=== PATIENT | female | born 1955 | race Caucasian/White ===

== ENCOUNTER 2020-06-04 18:35 | Emergency (ER) | payer OTHER, SELFPAY ==
[~2020-06-04] VITALS: Ht 160 cm; Wt 83.9 kg
[2020-06-04 18:35] VITALS: BP_SYST 165
[2020-06-04] MEDS ORDERED: methylPREDNISolone SOD SUCC/PF 62.5 MG/ML VIAL IVP ONE (19:00)
[2020-06-04] MEDS ORDERED: MAGNESIUM SULFATE 50 ML IV ONE (19:00)
[2020-06-04] MEDS ORDERED: NS 500 ML IV ONE (19:00)
[2020-06-04] MEDS ORDERED: ACETAMINOPHEN 500 MG TABLET PO ONE (19:45)
[2020-06-04] MEDS ORDERED: IPRATROPIUM/ALBUTEROL SULFATE 3 ML AMPUL.NEB (DUONEB) INH ONE (20:45)
[2020-06-04] MEDS ORDERED: MED4 PO (21:01)
[2020-06-04] MEDS ORDERED: AZIT250T PO (21:03)
[2020-06-04 21:50] VITALS: BP_SYST 132
== END 2020-06-04 21:50 | disposition home or self-care (01) ==
LOC: SED 18:35
DX: J44.1 Chronic obstructive pulmonary disease with (acute) exacerbation (principal); I10 Essential (primary) hypertension; Z86.73 Personal history of transient ischemic attack (TIA), and cerebral infarction without residual deficits
CPT/HCPCS: 71045; 94640; 96365; 96366; 96375; 99284; J7030

== ENCOUNTER 2021-11-22 06:51 | Emergency (ER) | payer OTHER ==
[~2021-11-22] VITALS: Ht 160 cm; Wt 68.0 kg
[~2021-11-22 06:51] MED LIST: MED4 PO; ZIT250 PO
[2021-11-22 06:52] VITALS: BP_SYST 121
--- NOTE | 2021-11-22 06:52 | NUR ---
Placed in room 1 . Placed on monitoring engineer, blood pressure machine and pulse oximeter. To gown for exam. Side rails up. Report given to VON CORDOBA(REG).
--- NOTE | 2021-11-22 06:53 | NUR ---
ER at bedside examining patient.
[2021-11-22] MEDS ORDERED: MAGNESIUM SULFATE 50 ML IV ONE ×2 (06:58→07:00)
[2021-11-22] MEDS ORDERED: IPRATROPIUM BROM 0.5 MG/2.5 ML VIAL.NEB (ATROVENT) INH ONE (07:00)
[2021-11-22] MEDS ORDERED: ALBUTEROL SULFATE 0.083% 2.5 MG/3 ML VIAL.NEB INH ONE (07:00)
[2021-11-22] MEDS ORDERED: methylPREDNISolone SOD SUCC 500 MG/VIAL (Solu-MEDROL) IV ONE (07:00)
[2021-11-22] MEDS ORDERED: methylPREDNISolone SOD SUCC/PF 62.5 MG/ML VIAL ONE (07:06)
[2021-11-22 07:12] LABS: BASOPHILS # (AUTO) 0.1 K/uL (0.0-0.2); BASOPHILS % (AUTO) 0.5 % (0.0-2.0); EOSINOPHILS # (AUTO) 1.1 K/uL (0.0-0.4); EOSINOPHILS % (AUTO) 8.8 % (0.0-4.0); HEMATOCRIT 44.1 % (36-48); HEMOGLOBIN 14.8 g/dL (12.0-16.0); LYMPHOCYTES # (AUTO) 4.9 K/uL (1.0-5.5); LYMPHOCYTES % (AUTO) 38.5 % (20.5-51.5); MEAN CORPUSCULAR HEMOGLOBIN 30 pg (27-31); MEAN CORPUSCULAR HGB CONC 34 % (32-36); MEAN CORPUSCULAR VOLUME 89 fL (79.0-98.0); MONOCYTES # (AUTO) 0.8 K/uL (0.0-1.0); MONOCYTES % (AUTO) 6.6 % (1.7-9.3); NEUTROPHILS # (AUTO) 5.8 K/uL (1.8-7.7); NEUTROPHILS % (AUTO) 45.6 % (40.0-70.0); PLATELET COUNT (AUTO) 495 K/uL (130-430); RED BLOOD CELL COUNT(AUTO) 4.96 MIL/uL (4.2-6.2); WHITE BLOOD COUNT (AUTO) 12.6 K/uL (4.8-10.8)
--- NOTE | 2021-11-22 07:12 | NUR ---
Pt BIBA, c/o SOB worsening this am, took inhaler at home with no relief. Hx asthma, COPD, frequent bronchitis. Audible wheezing, pt given breathing tx up arrival to ED per MD order. 20g IV started on right hand, pt given 2g Mag bolus and 125mg Solumedrol IV. Pt noted sinus tach 122 on monitor, MD aware. Pt a/ox4 at this time.
[2021-11-22 08:30] LABS: CALCIUM 8.3 mg/dL (8.4-11.0); CREATININE 0.78 mg/dL (0.55-1.30); POTASSIUM 4.2 mmol/L (3.5-5.1)
[2021-11-22 08:49] LABS: ALBUMIN 3.1 g/dL (3.4-4.8); TOTAL BILIRUBIN 0.1 mg/dL (0.0-1.0)
[2021-11-22] MEDS ORDERED: PRED20TA PO (09:00)
--- NOTE | 2021-11-22 09:19 | NUR ---
A/OX4 VSS VERBALIZED UNDERSTANDING OF DC INSTRUCTIONS ALL QUESTIONS ANSWERED
== END 2021-11-22 09:19 | disposition home or self-care (01) ==
LOC: SED 06:51
DX: J45.901 Unspecified asthma with (acute) exacerbation (principal); R06.02 Shortness of breath; I10 Essential (primary) hypertension; Z79.899 Other long term (current) drug therapy
CPT/HCPCS: 99291; 96365; 96375; 80053; 85025; 36415; 93005; 71045; 94640; J3475; J2930

== ENCOUNTER 2021-12-26 10:59 | Emergency (ER) | payer OTHER ==
[~2021-12-26] VITALS: Ht 160 cm; Wt 72.6 kg
[~2021-12-26 10:59] MED LIST changes: +PRED20TA PO
[2021-12-26 11:00] VITALS: BP_SYST 152
--- NOTE | 2021-12-26 11:02 | NUR ---
Placed in room 6 . Placed on vehicle monitor technician, blood pressure machine and pulse oximeter. To gown for exam. Side rails up.
--- NOTE | 2021-12-26 11:07 | NUR ---
RT AT THE BEDSIDE FOR BREATHING TX
--- NOTE | 2021-12-26 11:10 | NUR ---
ER DR. GOODWIN AT THE BEDSIDE EXAMINING PT
--- NOTE | 2021-12-26 11:13 | NUR ---
REPORT GIVEN TO BERYL WESTON FOR CONTINUING CARE
--- NOTE | 2021-12-26 11:14 | NUR ---
Dr Herr evaluating patient at bedside
[2021-12-26] MEDS ORDERED: IPRATROPIUM/ALBUTEROL SULFATE 3 ML AMPUL.NEB (DUONEB) INH ONE ×2 (11:15→12:30)
[2021-12-26] MEDS ORDERED: methylPREDNISolone SOD SUCC/PF 62.5 MG/ML VIAL IVP ONE (11:15)
--- NOTE | 2021-12-26 11:15 | NUR ---
RT at bedside
--- NOTE | 2021-12-26 11:23 | NUR ---
Pt brought by ambulance, A&Ox4, pt presents to ER with SOB , Hx of asthma, O2 90-92 % room air, chest retractions noted, skin pink and warm, cap refill <3, VSS, will cont to monitor.
[2021-12-26 11:27] LABS: BASOPHILS # (AUTO) 0.1 K/uL (0.0-0.2); BASOPHILS % (AUTO) 0.6 % (0.0-2.0); EOSINOPHILS # (AUTO) 0.2 K/uL (0.0-0.4); EOSINOPHILS % (AUTO) 2.5 % (0.0-4.0); HEMATOCRIT 42.4 % (36-48); LYMPHOCYTES # (AUTO) 1.5 K/uL (1.0-5.5); LYMPHOCYTES % (AUTO) 15.4 % (20.5-51.5); MEAN CORPUSCULAR VOLUME 89 fL (79.0-98.0); MONOCYTES # (AUTO) 0.8 K/uL (0.0-1.0); MONOCYTES % (AUTO) 7.6 % (1.7-9.3); NEUTROPHILS # (AUTO) 7.3 K/uL (1.8-7.7); NEUTROPHILS % (AUTO) 73.9 % (40.0-70.0); PLATELET COUNT (AUTO) 448 K/uL (130-430); RED BLOOD CELL COUNT(AUTO) 4.78 MIL/uL (4.2-6.2); WHITE BLOOD COUNT (AUTO) 9.9 K/uL (4.8-10.8)
[2021-12-26 11:54] LABS: CALCIUM 9.1 mg/dL (8.4-11.0); CREATININE 1.02 mg/dL (0.55-1.30); POTASSIUM 3.7 mmol/L (3.5-5.1)
[2021-12-26 12:00] LABS: ALBUMIN 3.4 g/dL (3.4-4.8); TOTAL BILIRUBIN 0.3 mg/dL (0.0-1.0)
[2021-12-26] MEDS ORDERED: PRED50TA PO (13:02)
[2021-12-26 13:50] VITALS: BP_SYST 115
--- NOTE | 2021-12-26 13:51 | NUR ---
Patient given written and verbal discharge instructions and verbalizes understanding. ER MD discussed with patient the results and treatment provided. Patient in stable condition. ID arm band removed. IV catheter removed intact and dressing applied, no active bleeding. Rx of PREDNISONE given. Patient educated on pain management and to follow up with PMD. Pain Scale 0/10 . Opportunity for questions provided and answered. Medication side effect fact sheet provided.
== END 2021-12-26 13:41 | disposition home or self-care (01) ==
LOC: SED 10:59
DX: J45.901 Unspecified asthma with (acute) exacerbation (principal); R06.02 Shortness of breath; I10 Essential (primary) hypertension; Z79.899 Other long term (current) drug therapy
CPT/HCPCS: 99284; 96374; 71045; 80053; 85025; 36415; 94760; 94640; J2930